=== PATIENT | female | born 1980 | race Caucasian/White ===

== ENCOUNTER 2020-01-26 09:27 | Outpatient (NON) | payer BC, SELFPAY ==
[2020-01-29 21:18] LABS: SARS-CoV-2 RNA PCR Positive
== END 2020-01-26 09:28 ==
LOC: ANHCOVIDDT 09:29
PROVIDERS: PCP Physician Assistant; Visit Provider Physician Assistant
DX: U07.1 COVID-19 (principal)
CPT/HCPCS: 87635; C9803; U0003

== ENCOUNTER 2020-02-01 08:30 | Outpatient (NON) | payer BC, SELFPAY ==
[2020-02-02 18:24] LABS: SARS-CoV-2 RNA PCR Positive
== END 2020-02-01 08:31 ==
LOC: ANHCOVIDDT 08:31
PROVIDERS: PCP Physician Assistant; Visit Provider Physician Assistant
DX: U07.1 COVID-19 (principal)
CPT/HCPCS: 87635; C9803; U0003

== ENCOUNTER → 2020-02-22 15:34 | Outpatient (CLI) | payer BC, SELFPAY ==
--- NOTE | ~2020-02-22 | XR_ITS ---
EXAMINATION: XR abdomen/kub 1V INDICATION: Right flank pain TECHNIQUE: Supine views of the abdomen were obtained on 2 radiographs. COMPARISON: 03/26/2018 FINDINGS: A punctate 2 mm stone projects in the right kidney lower pole. No stones are identified tamika ng the expected courses of the ureters or within the urinary bladder. There is a phlebolith of the le ft pelvis. A bone island is noted in the sacrum to the right of midline there is a moderate volume of colonic stool. An IUD is noted in the pelvis. The visualized lung bases are clear.. IMPRESSION: 1. Punctate right nephrolithiasis. Reviewed, dictated and finalized at location A. E MIXER
== END ==
PROVIDERS: PCP Physician Assistant; Visit Provider Physician Assistant
DX: N20.0 Calculus of kidney (principal)
CPT/HCPCS: 74018

== ENCOUNTER → 2020-04-19 13:39 | Outpatient (CLI) | payer BC, SELFPAY ==
--- NOTE | ~2020-04-19 | MM_ITS ---
EXAMINATION: MM scrn grace implant BI w jolie HISTORY: Screening mammogram TECHNIQUE: Craniocaudal and mediolateral oblique 3-D tomosynthesis images with implant displacement a nd synthetic 2-D images were generated. Craniocaudal and mediolateral oblique views of the breasts wi thout implant displacement were obtained using full field digital mammography. CAD analysis was submi tted and interpreted. COMPARISON: 04/04/2019, 04/22/2016, 05/21/2005 BREAST PARENCHYMAL COMPOSITION: The breasts are heterogeneously dense, which may obscure small masses . FINDINGS: There is no evidence of suspicious mass, calcification, or architectural distortion to sugg est malignancy in either breast. There has been no suspicious interval change. IMPRESSION: 1. No mammographic evidence of malignancy. 2. Recommend routine screening mammography in one year. BI-RADS Category 1: Negative Reviewed, dictated and finalized at location A. DENT ATHLETIC TRAINER
== END ==
PROVIDERS: PCP Physician Assistant; Visit Provider Physician Assistant
DX: Z12.31 Encounter for screening mammogram for malignant neoplasm of breast (principal)
CPT/HCPCS: 77063; 77067

== ENCOUNTER 2020-08-01 15:21 | Outpatient (CLI) | payer BC, SELFPAY ==
--- NOTE | ~2020-08-01 | XR_ITS ---
EXAMINATION: XR abdomen/kub 1V INDICATION: Right flank pain TECHNIQUE: Supine views of the abdomen were obtained on 2 radiographs. COMPARISON: 02/22/2020 FINDINGS: No definite urolithiasis is identified. There is a phlebolith of the left pelvis. An IUD is noted in the pelvis. A bone island is again noted in the right sacrum. The visualized lung bases are clear. IMPRESSION: 1. No definite urolithiasis identified. Reviewed, dictated and finalized at location A.
== END 2020-08-01 15:22 | disposition home or self-care (01) ==
LOC: ANHIMG 15:25
PROVIDERS: PCP Physician Assistant; Visit Provider Nurse Practitioner Family
DX: R10.9 Unspecified abdominal pain (principal)
CPT/HCPCS: 74018

== ENCOUNTER → 2020-11-08 08:37 | Outpatient (CLI) | payer BC, SELFPAY ==
--- NOTE | ~2020-11-08 | MMUS_ITS ---
EXAMINATION: MM diag grace implant BI w jolie, US breast BI limited HISTORY: Pain and tenderness in the upper outer quadrants of both breasts TECHNIQUE: Craniocaudal, mediolateral, and mediolateral oblique 3-D tomosynthesis images with implant displacement of the breasts were performed and synthetic 2-D images were generated. Craniocaudal, m ediolateral oblique, and mediolateral views of the breasts without implant displacement were obtained using full field digital mammography. CAD analysis was submitted and interpreted. High resolution li [employer] bilateral breast ultrasound was performed. COMPARISON: 04/19/2020, 03/25/2019, 04/22/2016 BREAST PARENCHYMAL COMPOSITION: The breasts are heterogeneously dense, which may obscure small masses . FINDINGS: MAMMOGRAPHIC FINDINGS: There is no evidence of suspicious mass, calcification, or architectural distortion in either breast to suggest malignancy. There has been no suspicious interval change. No mammographic correlate is edilson ntified for the patient in the upper outer quadrant of either breast. ULTRASOUND: There is no evidence of focal abnormal solid or cystic lesion in the vicinity of the pain and tendern ess in either breast. IMPRESSION: 1. No specific mammographic or sonographic correlate is identified for the patient's bilateral breast pain Further evaluation at this time should be based on clinical assessment. Continued follow-up phy sical examination is recommended. 2. Recommend routine screening mammography in one year. BI-RADS Category 1: Negative Reviewed, dictated and finalized at location A. IMPRESSION: 1. No specific mammographic or sonographic correlate is identified for the miguel ent's bilateral breast pain Further evaluation at this time should be based on clinical assessment. Continued follow-up physical examination is recommended. 2. Recommend routine screening mammography in one year. BI-RADS Category 1: Negative
== END ==
PROVIDERS: PCP Physician Assistant; Visit Provider Obstetrics & Gynecology
DX: N63.10 Unspecified lump in the right breast, unspecified quadrant (principal); N64.4 Mastodynia
CPT/HCPCS: 76642; 77062; 77066; G0279

== ENCOUNTER → 2021-04-02 09:24 | Outpatient (CLI) | payer BC, SELFPAY ==
[2021-04-03 10:58] LABS: SARS-CoV-2 RNA PCR Positive
== END ==
PROVIDERS: PCP Physician Assistant; Visit Provider Physician Assistant
DX: U07.1 COVID-19 (principal)
CPT/HCPCS: C9803; U0003; U0005

== ENCOUNTER → 2021-09-07 10:12 | Outpatient (CLI) | payer BC, SELFPAY ==
--- NOTE | ~2021-09-07 | MM_ITS ---
EXAMINATION: MM scrn grace implant BI w jolie HISTORY: Screening mammogram TECHNIQUE: Craniocaudal and mediolateral oblique 3-D tomosynthesis images with implant displacement a nd synthetic 2-D images were generated. Craniocaudal and mediolateral oblique views of the breasts wi thout implant displacement were obtained using full field digital mammography. CAD analysis was submi tted and interpreted. COMPARISON: 11/08/2020 bilateral diagnostic mammography and bilateral Limited breast ultrasound examin ation BREAST PARENCHYMAL COMPOSITION: The breasts are heterogeneously dense, which may obscure small masses . FINDINGS: Status post bilateral augmentation mammoplasty. There is no evidence of suspicious mass, ca lcification, or architectural distortion to suggest malignancy in either breast. There has been no alarcon spicious interval change. IMPRESSION: 1. No mammographic evidence of malignancy. 2. Recommend routine screening mammography in one year. BI-RADS Category 1: Negative Reviewed, dictated and finalized at location A.
== END ==
PROVIDERS: PCP Physician Assistant; Visit Provider Nurse Practitioner Obstetrics & Gynecology
DX: Z12.31 Encounter for screening mammogram for malignant neoplasm of breast (principal)
CPT/HCPCS: 77063; 77067

== ENCOUNTER → 2022-03-21 09:01 | Outpatient (CLI) | payer BC, SELFPAY ==
--- NOTE | ~2022-03-21 | US_ITS ---
EXAMINATION: US breast RT limited HISTORY: Pain in the upper outer quadrant of the right breast. Recent screening mammogram was normal in the region of clinical concern. TECHNIQUE: Limited right breast ultrasound is performed. FINDINGS: There is no evidence of focal abnormal cystic or solid mass in the vicinity of the patient' s right breast pain. IMPRESSION: No specific sonographic correlate is identified for the patient's right breast pain. Further evaluati on at this time should be based on clinical assessment. Continued follow-up physical examination is r ecommended. Routine screening mammography is due in August. BI-RADS Category 1: Negative Reviewed, dictated and finalized at location A. CHOOL PROGRAM DIRECTOR IMPRESSION: No specific sonographic correlate is identified for the patient's right breast pain. Further evaluation at this time should be based on clinical assessment. C ontinued follow-up physical examination is recommended. Routine screening mammo graphy is due in August. BI-RADS Category 1: Negative
== END ==
PROVIDERS: PCP Physician Assistant; Visit Provider Physician Assistant
DX: N64.4 Mastodynia (principal)
CPT/HCPCS: 76642

== ENCOUNTER 2024-06-10 09:02 | Outpatient (CLI) | payer BC, SELFPAY ==
--- NOTE | ~2024-06-10 | US_ITS ---
EXAMINATION: US pelvic complete w TV INDICATION: Abnormal uterine bleeding Comparison:No prior studies for comparison. TECHNIQUE: Multiple transabdominal and endovaginal sonographic images of the pelvis performed. FINDINGS: The uterus measures 7.2 x 4.6 x 3.8 cm. There is a nabothian cyst. The endometrial complex measures 5 mm. The right ovary measures 2.5 x 2.2 x 1.9 cm and the left ovary measures 2.9 x 2.4 x 1.2 cm. There ar e small follicles in each ovary. Normal doppler signal in both ovaries. There is no free fluid in the pelvis. There are no abnormal masses seen on either side. IMPRESSION: 1. Unremarkable pelvic ultrasound. Reviewed, dictated and finalized at location A.
== END 2024-06-10 09:03 | disposition home or self-care (01) ==
LOC: GOSHIMG 09:04
PROVIDERS: PCP Nurse Practitioner Obstetrics & Gynecology; Visit Provider Nurse Practitioner Obstetrics & Gynecology
DX: N93.9 Abnormal uterine and vaginal bleeding, unspecified (principal)
CPT/HCPCS: 76830; 76856

== ENCOUNTER 2024-10-06 15:19 | Outpatient (CLI) | payer BC, SELFPAY ==
--- NOTE | ~2024-10-06 | MM_ITS ---
EXAMINATION: MM scrn grace implant BI w jolie INDICATION: Asymptomatic, referred for screening mammogram COMPARISON: 08/07/2021 through 04/22/2016 TECHNIQUE: Digital Breast Tomosynthesis CC, MLO, and implant displaced CC and MLO views of Both breas ts were obtained with computer-aided detection to assist in interpretation of the study. FINDINGS: The breasts are heterogeneously dense, which may obscure small masses. Bilateral breast Retroglandular Silicone implants in place appears intact. No focal dominant mass, architectural distortion, or suspicious microcalcifications are identified. There are no features to suggest malignancy. IMPRESSION: 1. No evidence of malignancy in the breasts. 2. Both breasts Retroglandular Silicone implants appears intact. Recommend continued screening mammography BI-RADS 1, NEGATIVE Reviewed, dictated and finalized at location B.
== END 2024-10-06 15:20 | disposition home or self-care (01) ==
LOC: MICIMG 15:20
PROVIDERS: PCP Physician Assistant; Visit Provider Student in an Organized Health Care Education/Training Program
DX: Z12.31 Encounter for screening mammogram for malignant neoplasm of breast (principal); Z98.82 Breast implant status
CPT/HCPCS: 77063; 77067

== ENCOUNTER 2024-11-08 15:01 | Outpatient (CLI) | payer BC, SELFPAY ==
--- NOTE | ~2024-11-08 | US_ITS ---
EXAMINATION:US venous doppler LE LT INDICATION:Left lower extremity pain TECHNIQUE: Multiple grayscale, color flow and Doppler images of the left lower extremity deep venous systems were obtained and reviewed. COMPARISON:No prior studies for comparison. FINDINGS: The common femoral, superficial femoral and popliteal veins demonstrate normal respiratory variation, augmentation and compressibility. Color flow is also seen within the posterior tibial, peroneal, greater saphenous and profunda veins. IMPRESSION: 1: No lower extremity deep venous thrombosis. Reviewed, dictated and finalized at location O.
--- OUTSIDE RECORDS SUMMARY | 2024-11-08 15:18 | XMS_ITS | Clinical Summary ---
Author Organization [facility] Address [address] [place] [address] Care Team Providers Care Midwife Practitioner Name Role Phone Lucio Mcclain MD Primary Care Provider [phone] [facility],non-owned Affiliates and Associated Physician Practices is amultiple site organization consisting of ambulatory clinics and hospital sitesin [place], [place], [place] and [place]. This disclosure is being madepursuant to the Care Everywhere program and may not contain all information available regarding this patient. Last updated 17.[facility] Family History Medical History Relation Name Comments Cancer - Other Father Cancer - Prostate Maternal Grandfather Cancer - Other Maternal Grandmother Relation Name Status Comments Father Maternal Grandfather Alive Maternal Grandmother Social History Tobacco Use Types Packs/Day Years Used Date Smoking Tobacco: Never Assessed Comments Unknown Sex and Gender Information Value Date Recorded Sex Assigned at Not on file Legal Sex Female 8:06 AM C T TECH Gender Identity Not on file Sexual Orientation Not on file Plan of Treatment Health Maintenance Due Date Last Done Comments COLOGUARD (AGES 45-75) - COLON CA SCREENING 1979 COLON MONITORING 1979 COLONOSCOPY - COLON CA SCREENING 1979 CT COLONOGRAPHY - COLON CA SCREENING 1979 Colorectal Cancer Screening 1979 FIT - COLON CA SCREENING 1979 FLEX SIG - COLON CA SCREENING 1979 LIPID TESTING 1979 HIV SCREENING 1994 HEPATITIS C SCREENING 01/11/1997 DTAP/TDAP/TD VACCINES (1 - Tdap) 1998 HEPATITIS B VACCINE (1 of 3 - 19+ 3-dose series) 1998 HPV VACCINE (1 - 3-dose SCDM series) 2006 COVID-19 VACCINE ( season) 2023 DEPRESSION SCREENING 03/17/2024 PAP SMEAR 06/20/2024 06/20/2021, 06/20/2021 INFLUENZA VACCINE (#1) 2024 9, 01/22/2018, 03/31/2017, Additional history exists MAMMOGRAM 06/02/2025 06/03/2023 ZOSTER VACCINE (1 of 2) 2029 HIB VACCINE Aged Out No longer eligi ble based on patient's age to complete this topic MENINGOCOCCAL (Group B) VACCINE SHARED DECISION-MAKING Aged Out No longer eligible based on patient's age to complete this topic MENINGOCOCCAL GROUPS A/C/Y/W VACCINE Aged Out No longer eligible based on patient's age to complete this topic PNEUMOCOCCAL VACCINE Aged Out No long er eligible based on patient's age to complete this topic Procedures Procedure Name Priority Date/Time Associated Diagnosis Comments MAMMO BILAT IMPLANT SCREEN W KYLE Routine 06/03/2023 9:23 AM CDT Visit for screening mammogram from Last 3 Months or Most Recently Relevant to Health Maintenance Results * MAMMO BILAT IMPLANT SCREEN W KYLE (06/03/2023 9:23 AM CDT) Anatomical Region Laterality Modality Breast Bilateral Mammography 06/03/2023 10:3 1 AM CDT Impressions 06/03/2023 11:58 AM CDT : Benign mammogram, without evidence of malignancy. Dense breast parenchyma. RECOMMENDATION: Screening mammography in one year, pending no interval breast concerns. OVERALL ASSESSMENT: BI-RADS CATEGORY 2: BENIGN. > Dictated by Jerrod Ruiz DO (resident) I, Amisha Martin MD have personally reviewed and interpreted this examination/study. > Interpreting Provider: Amisha Martin MD on 06/03/2023 11:58 AM Narrative 06/03/2023 11:58 AM CDT EXAMINATIONS: BILATERAL DIGITAL SCREENING MAMMOGRAM WITH IMPLANTS AND BILATERAL BREAST TOMOSYNTHESIS WITH CAD LOCATION: [facility] EXAM DATE: 06/03/2023 HISTORY: Screening. History of breast augmentation, with implants placed in 2017. RISK ASSESSMENT CALCULATION: Patient completed a breast cancer risk assessment during her appointment 06/03/2023. Based upon the information she provided and her mammographic breast density, her lifetime risk of developing breast cancer is 12 % (Average Risk <15%; Intermediate / Moderate Risk 15-19; High Risk > 20%). Risk assessment based upon the Tyrer-Cuzick v8 model. COMPARISON: Outside mammograms from [facility] in [facility] dated 09/07/2021, 11/08/2020, 04/19/2020, and 03/25/2019. TECHNIQUE: Bilateral synthetic 2-D digital mammogram images and bilateral digital breast tomosynthesis (3D) were obtained and reviewed in the craniocaudal and mediolateral oblique projections with the breast implants displaced. Bilateral craniocaudal and mediolateral oblique conventional full field digital images were also obtained to include the bilateral breast implants. . A total of 8 images obtained. Mole marker was placed on the right breast. Computer-aided detection (CAD) was utilized. BREAST PARENCHYMAL COMPOSITION: Category C: The breasts are heterogeneously dense which may obscure small masses. FINDINGS: There are subglandular silicone breast implants, which limit evaluation of the breast parenchyma There are no suspicious findings or evidence of malignancy on mammography. No change from prior. Anat DANIELS MAMMO ORDERABLES Final Result from Last 3 Months or Most Recently Relevant to Health Maintenance Insurance [employer] Care Teams Midwife Practitioner Relationship Specialty Start Date End Date Lucio Mcclain MD [address] [place] [address] PCP - General 05/11/21
--- OUTSIDE RECORDS SUMMARY | 2024-11-08 15:18 | XMS_ITS | Encounter Summary ---
Author Organization [facility] Address [address] [place] [address] Care Team Providers Care Legal Cashier Name Role Phone Lucio Mcclain MD Primary Care Provider [phone] Encounter Details Date Type Department Care Team (Late st Contact Info) Description 05/11/2021 Lab Requisition [facility] [address] [place] [id number] Chester Arrington MD [address] [place] [address] Social History Tobacco Use Types Packs/Day Years Used Date Smoking Tobacco: Never Assessed Comments Unknown Sex and Gender Information Value Date Recorded Sex Assigned at Not on file Legal Sex Female 8:06 AM ASBESTOS SHINGLE ROOFER Gender Identity Not on file Sexual Orientation Not on file documented as of this encounter Plan of Treatment Not on file documented as of this encounter Procedures Procedure Name Priority Date/Time Associated Diagnosis Comments DERMATOPATHOLOGY Routine 05/10/2021 12:0 0 AM ASBESTOS SHINGLE ROOFER documented in this encounter Results * DERMATOPATHOLOGY (05/10/2021 12:00 AM ASBESTOS SHINGLE ROOFER) Case Report Dermatopathology Report Case: [id number] Authorizing Provider: Chester Arrington MD Collected: 05/10/2021 12:00 AM Ordering Location: [facility] Received: 05/11/2021 09:09 AM Pathologist: Mariam Gallagher MD Specimen: Skin, Mons pubis 3:31 PM [facility] DERMAT[facility] LABORATORY Final Diagnosis Specimen A. 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 Path # [id number]. Check margins. 2 3:31 PM [facility] DERMATOPATHOLOGY LABORATORY Gross Description Specimen A: Received is one formalin filled container labeled with the patient's name and designated Mons pubis. The specimen consists of a [id number] excision, bisected. The margin is inked green. Jar 0. 2 3:31 PM [facility] DERMATOPATHOLOGY LABORATORY Microscopic Description Specimen A. SKIN, Mons pubis: Sections show a well-circumscribed, encapsulated tumor composed of interlacing bundles of uniform spindle cells focally arranged in parallel rows embedded in a uniform eosinophilic stroma. Cystic degeneration is noted within the center of the lesion. This lesion is not present at the sampled margin of the specimen. The hematoxylin and eosin stain is reviewed; immunohistochemical stains are performed to further characterize this tumor. The tumor stains strongly and diffusely with S-100 and stains weakly and focally for [id number]. It is negative for desmin, pancytokeratin, [place]-1/Melan A, ERG and CD34. 2 3:31 PM [facility] DERMATOPATHOLOGY LABORATORY Disclaimer An external and internal positive and negative controls are appropriate for the histochemical, immunohistochemical and immunofluorescence stain(s) in this case (if any), except where stated explicitly. The performance characteristics of the stain(s) cited in this report were developed and its performance characteristic determined by the Dermatopathology Laboratory at [facility], directed by Dr. Parker Farfan. These tests need not be, and therefore are not, approved by the [place] Food and Drug Administration. The tests are used for clinical purposes. Billing Codes Specimen Charges Stain Charges 18743 1 26687 77431 36654 45048 59735 13905 28211 1 1 1 1 1 1 1 2 3:31 PM [facility] DERMATOPATHOLOGY LABORATORY Embedded Images 2 3:31 PM [facility] DERMATOPATHOLOGY LABORATORY Pathology/Cytolog y TISSUE SPECIMEN FROM SKIN / Unknown 05/10/2021 05/11/2021 9:09 AM ASBESTOS SHINGLE ROOFER us Chester Arrington MD LAB - PATHOLOGY/CYTOLOGY ORDER RYLEE Final Result DERMATOPATHOLOGY LABORATORY [facility] - Department of Dermatology [facility] Medicine [address] [place] [address], [address] [phone] documented in this encounter Visit Diagnoses Not on filedocumented in this encounter Care Teams Legal Cashier Relationship Specialty Start Date End Date Lucio Mcclain MD [address] [place] [address] PCP - General 05/11/21 documented as of this encounter
--- OUTSIDE RECORDS SUMMARY | 2024-11-08 15:18 | XMS_ITS | Encounter Summary ---
Author Organization [facility] Address [address] [place] [address] Care Team Providers Care Tobacco Cloth Reclaimer Name Role Phone Lucio Mcclain MD Primary Care Provider [phone] Encounter Details Date Type Department Care Team (Late st Contact Info) Description 09/16/2023 Lab Requisition [facility] - [facility] Lab [address] [place] [address] Mukesh Aguilar MD [address] [place] [address] Social History Tobacco Use Types Packs/Day Years Used Date Smoking Tobacco: Never Assessed Comments Unknown Sex and Gender Information Value Date Recorded Sex Assigned at Not on file Legal Sex Female 8:06 AM PHYSICAL THERAPY AID Gender Identity Not on file Sexual Orientation Not on file documented as of this encounter Plan of Treatment Not on file documented as of this encounter Procedures Procedure Name Priority Date/Time Associated Diagnosis Comments DERMATOPATHOLOGY Routine 09/15/2023 12:0 0 AM CDT documented in this encounter Results * DERMATOPATHOLOGY (09/15/2023 12:00 AM CDT) Case Report Dermatopathology Report Case: [id number] Authorizing Provider: Mukesh Aguilar MD Collected: 09/15/2023 12:00 AM [facility]ing Location[facility] - Received: 09/16/2023 07:25 AM DermPath Lab Pathologist: Emani Cano MD Specimen: Skin, mid back 12:57 PM CDT DERMATOPATHOLOGY LABORATORY Final Diagnosis Specimen A. SKIN, mid back: EPIDERMOID CYST (L72.0) 12:57 PM CDT DERMATOPATHOLOGY LABORATORY at 1257 CDT Clinical History Cyst 12:57 PM CDT DERMATOPATHOLOGY LABORATORY Gross Description Specimen A: Received is one formalin filled container labeled with the patient's name and designated mid back. The specimen consists of a 5x5x6;5x7x5 mm piece of skin. The specimen is serially sectioned and a sales representative raw fibers section is submitted in cassette 1. Jar 1. 12:57 PM CDT DERMATOPATHOLOGY LABORATORY Microscopic Description Specimen A. SKIN, mid back: Within the dermis, there is a space lined by epithelium that resembles normal epidermis and the infundibular portion of the hair follicle. 12:57 PM CDT DERMATOPATHOLOGY LABORATORY Disclaimer An external and internal positive and negative controls are appropriate for the histochemical, immunohistochemical and immunofluorescence stain(s) in this case (if any), except where stated explicitly. The performance characteristics of the stain(s) cited in this report were developed and its performance characteristic determined by the Dermatopathology Laboratory at [facility], directed by Dr. Parker Farfan. These tests need not be, and therefore are not, approved by the [place] Food and Drug Administration. The tests are used for clinical purposes. Billing Codes Specimen Charges Stain Charges 39676 1 12:57 PM CDT DERMATOPATHOLOGY LABORATORY Embedded Images 12:57 PM CDT DERMATOPATHOLOGY LABORATORY Pathology/Cytolog y TISSUE SPECIMEN FROM SKIN / Unknown 09/15/2023 09/16/2023 7:25 AM CDT Mukesh Aguilar MD LAB - PATHOLOGY/CYTOLOGY ORDERAB LES Final Result DERMATOPATHOLOGY LABORATORY [facility] - Department of Dermatology [address], [address] [phone] documented in this encounter Visit Diagnoses Not on filedocumented in this encounter Care Teams Tobacco Cloth Reclaimer Relationship Specialty Start Date End Date Lucio Mcclain MD [address] [place] [address] PCP - General 05/11/21 documented as of this encounter
--- OUTSIDE RECORDS SUMMARY | 2024-11-08 15:18 | XMS_ITS | Clinical Summary ---
Author Organization [facility] [address] Address [address] [place] [address] Care Team Providers Care State Assessed Properties Director Name Role Phone Anat Pressley [facility] ovider Allergies No known active allergies Medications testosterone micronized, bulk, 100 % powder 3 01/02/20 22 Active testosterone (ANDROGEL) 1 % (25 mg/2.5gram) gel in packet Place 50 mg on the skin daily 1/2 gram 1 time per day Active liothyronine (CYTOMEL) 5 mcg tablet Take 5 mcg by mouth daily Active levonorgestrel (MIRENA INTRAUTERINE) Mirena 01/21/20 19 Active methocarbamoL (ROBAXIN) 750 mg tablet methocarbamol 750 mg tablet Active nitrofurantoin monohydrate (MACROBID) 100 mg capsule nitrofurantoin monohydrate/macrocry stals 100 mg capsule Acti ve prochlorperazin e (COMPAZINE) 10 mg tablet prochlorperazine maleate 10 mg tablet Acti ve semaglutide (Wegovy) 0.25 mg/0.5 mL auto-injector 0.25 mg Active polyethylene glycol (polyethylene glycol-electrol ytes) 236-22.74-6.74 -5.86 gram solution peg-electrolyte solution 420 gram oral solution Active traMADoL (ULTRAM) 50 mg tablet tramadol 50 mg tablet Active estradioL (ESTRACE) 0.5 mg tablet Take 1 tablet (0.5 mg total) by mouth daily Active minoxidiL (LONITEN) 2.5 mg tablet Take 0.5 tablets (1.25 mg total) by mouth daily Active Active Problems No known active problems Surgical History Surgery Date Site/Laterality Comments UMBILICAL HERNIA REPAIR 03/17/2012 - 03/16/2013 URINARY SURGERY 03/17/2012 - 03/16/2013 Medical History Medical History Date Comments Kidney stones Migraine Family History Medical History Relation Name Comments Cancer Other Diabetes Other Hypertension Other Kidney disease Other Relation Name Status Comments Other Social History Tobacco Use Types Packs/Day Years Used Date Smoking Tobacco: Never Smokeless Tobacco: Never Tobacco Cessation:Counseling Given: Not Answered Personal Safety Answer Date Recorded Getting School Help Needed Not on file 04/02 Comments Unknown Sex and Gender Information Value Date Recorded Sex Assigned at Not on file Legal Sex Female 2:13 PM CDT Gender Identity Not on file Sexual Orientation Not on file Obstetrics History Last Filed Vital Signs Vital Sign Reading Time Taken Comments Blood Pressure 110/74 11/10/2023 5:58 PM CDT Pulse 52 11/10/2023 5:58 PM CDT Temperature 36.9 C (98.4 F) 11/10/2023 5:58 PM CDT Respiratory Rate 18 11/10/2023 5:58 PM CDT Oxygen Saturation 97% 11/10/2023 5:58 PM CDT Inhaled Oxygen Concentration - - Weight 70.3 kg (155 lb) 11/10/2023 5:58 PM CDT Height 165.1 cm (5' 5) 11/10/2023 5:58 PM CDT Body Mass Index 25.79 11/10/2023 5:58 PM CDT Plan of Treatment Health Maintenance Due Date Last Done Comments Cervical Cancer Screening 1979 Colon Cancer Screening-Colonoscopy 1979 Depression Screening 1979 Hepatitis C Screening 1979 DTaP/Tdap/Td Vaccine (1 - Tdap) 1990 Hepatitis B Screening 1997 Regular Well Visit/Exam 18-64 1997 HPV Vaccines (1 - 3-dose SCDM series) 2006 Covid-19 Vaccine ( season) 2023 07/18/2020, 06/26/2020 Breast Cancer Screening-Mammogram 06/02/2024 06/03/2023, 06/03/2023 Influenza Vaccine (#1) 2024 9, 01/22/2018, 03/31/2017, Additional history exists Pneumococcal vaccine <65 Aged Out No longer eligible based on patient's age to complete this topic [place] Care Teams State Assessed Properties Director Relationship Specialty Start Date End Date Anat Pressley PA PCP - General Physician Structural Designer 12/28/21
== END 2024-11-08 15:02 | disposition home or self-care (01) ==
LOC: ANHIMG 15:02
PROVIDERS: PCP Physician Assistant; Visit Provider Physician Assistant
DX: M79.662 Pain in left lower leg (principal)
CPT/HCPCS: 93971